=== PATIENT | male | born 1955 | race Caucasian/White ===

== ENCOUNTER 2024-05-18 16:20 | Emergency (ER) | payer BC, OTHER ==
[~2024-05-18] VITALS: Ht 182.9 cm; Wt 82.6 kg
[2024-05-18] MEDS ORDERED: TDAP [DIPH/PERTUSSIS/TET] 0.5 ML VIAL IM ONE (16:56)
[2024-05-18] MEDS: TDAP [DIPH/PERTUSSIS/TET] 0.5 ML VIAL IM ONE (17:00)
[2024-05-18] MEDS ORDERED: CEPH500C2 PO (21:25)
[2024-05-18] MEDS: BACI/NEOM/POLY B OINT PKT 1 UDPKT PACKET TP ONE (21:36)
[2024-05-18] MEDS ORDERED: CEPHALEXIN MONOHYDRATE 500 MG CAPSULE PO ONE (21:38)
[2024-05-18] MEDS: CEPHALEXIN MONOHYDRATE 500 MG CAPSULE PO ONE (21:43)
[2024-05-18 21:50] VITALS: BP 126/82; TEMP 98; O2SAT 99
== END 2024-05-18 21:50 | disposition home or self-care (01) ==
LOC: ER 16:20
DX: S81.811A Laceration without foreign body, right lower leg, initial encounter (principal); I10 Essential (primary) hypertension; I48.91 Unspecified atrial fibrillation; Z79.01 Long term (current) use of anticoagulants; Z88.1 Allergy status to other antibiotic agents; Z88.2 Allergy status to sulfonamides; W01.0XXA Fall on same level from slipping, tripping and stumbling without subsequent striking against object, initial encounter; Y93.89 Activity, other specified; Y92.89 Other specified places as the place of occurrence of the external cause; Y99.8 Other external cause status
CPT/HCPCS: 73590-TC; 90715

== ENCOUNTER 2024-05-21 10:16 | Emergency (ER) | payer BC ==
[~2024-05-21] VITALS: Ht 182.9 cm; Wt 88.5 kg
[~2024-05-21 10:16] MED LIST: CEPH500C2 PO
[2024-05-21 10:26] VITALS: BP 137/94; TEMP 98.3
[2024-05-21 11:05] VITALS: O2SAT 95
== END 2024-05-21 11:06 | disposition home or self-care (01) ==
LOC: ER 10:30
DX: S81.011D Laceration without foreign body, right knee, subsequent encounter (principal); I10 Essential (primary) hypertension; I48.91 Unspecified atrial fibrillation; Z88.1 Allergy status to other antibiotic agents; Z48.00 Encounter for change or removal of nonsurgical wound dressing; Z88.2 Allergy status to sulfonamides; X58.XXXD Exposure to other specified factors, subsequent encounter

== ENCOUNTER 2024-05-28 09:05 | Emergency (ER) | payer BC ==
[~2024-05-28] VITALS: Ht 182.9 cm; Wt 88.5 kg
[2024-05-28 09:05] VITALS: BP 133/80; TEMP 98.3
[2024-05-28 10:07] VITALS: O2SAT 99
== END 2024-05-28 10:08 | disposition home or self-care (01) ==
LOC: ER 09:07
DX: S81.811D Laceration without foreign body, right lower leg, subsequent encounter (principal); I10 Essential (primary) hypertension; I48.91 Unspecified atrial fibrillation; Z79.01 Long term (current) use of anticoagulants; Z88.1 Allergy status to other antibiotic agents; Z88.2 Allergy status to sulfonamides; Z48.02 Encounter for removal of sutures; Z60.2 Problems related to living alone; X58.XXXD Exposure to other specified factors, subsequent encounter